=== PATIENT | male | born 1995 | race Caucasian/White ===

== ENCOUNTER 2016-04-23 06:17 | Emergency (ER) | payer SELFPAY ==
[~2016-04-23] VITALS: Ht 188 cm; Wt 84.0 kg
[2016-04-23 06:19] VITALS: BP 124/74; PULSE 105; RESP 16; TEMP 99.3; O2SAT 98
[2016-04-23] MEDS ORDERED: IBUPROFEN 800 MG TAB PO ONE (07:15)
[2016-04-23] MEDS ORDERED: ACETAMINOPHEN 500 MG CPLT PO ONE (07:15)
--- NOTE | 2016-04-23 07:45 | PD ---
HPI Chief Complaint: Cold / Flu Symptoms Time Seen by Provider: 07:44 Travel History International Travel<30 days: No Contact w/Intl Traveler<30days: No Traveled to known affect area: No History of Present Illness HPI 20-year-old male presents to emergency department with sore throat, fever, and body aches since last evening. Patient states it is difficult to swallow. Denies any cough or chest congestion. Denies nausea, vomiting, or diarrhea. No other symptoms to report. PFSH Past Medical History Medical History: Denies Significant Hx Diminished Hearing: No Immunizations Current: Yes Past Surgical History Eye Surgery: Yes (LASIK BILAT) Social History Alcohol Use: Yes (OCC) Tobacco Use: No Substance Use: No Allergies-Medications (Allergen,Severity, Reaction): Coded Allergies: No Known Allergies (Unverified , 04/23/16) Reported Meds & Prescriptions Reported Meds & Active Scripts Active Ibuprofen 800 Mg Tab 800 Mg PO Q6HR PRN Magic Mouthwash Adult Liq (Multi-Ingredient Mouthwash/Gargle) 120 Ml Susp 5 Ml SWISH-SPIT Q3HR PRN Each 5mL contains: Nystatin 200,000units, Diphenhydramine 4.25mg, Viscous Lidocaine 10mg, Torres syrup 0.8 mL Amoxicillin 500 Mg Cap 500 Mg PO BID 10 Days Review of Systems Except as stated in HPI: all other systems reviewed are Neg Physical Exam Narrative GENERAL: Well-nourished male patient in no acute distress SKIN: Warm and dry. HEAD: Atraumatic. Normocephalic. EYES: Pupils equal and round. No scleral icterus. No injection or drainage. ENT: No nasal bleeding or discharge. 2+ tonsillar edema with large exudate. Mucous membranes pink and moist. NECK: Trachea midline. No JVD. CARDIOVASCULAR: Regular rate and rhythm. No murmur appreciated. RESPIRATORY: No accessory muscle use. Clear to auscultation. Breath sounds equal bilaterally. GASTROINTESTINAL: Abdomen soft, non-tender, nondistended. Hepatic and splenic margins not palpable. MUSCULOSKELETAL: No obvious deformities. No clubbing. No cyanosis. No edema. NEUROLOGICAL: Awake and alert. No obvious cranial nerve deficits. Motor grossly within normal limits. Normal speech. PSYCHIATRIC: Appropriate mood and affect; insight and judgment normal. Data Data Last Documented VS Vital Signs Date Time Temp Pulse Resp B/P Pulse Ox O2 Delivery O2 Flow Rate FiO2 04/23/16 06:19 99.3 105 16 124/74 98 Orders Influenzae A/B Antigen (04/23/16 06:29) Group A Rapid Strep Screen (04/23/16 07:04) Monoscreen (04/23/16 07:04) Ibuprofen (Motrin) (04/23/16 07:15) Acetaminophen (Tylenol) (04/23/16 07:15) Strep Culture (Group A) (04/23/16 07:20) Labs Laboratory Tests Test 04/23/16 07:20 Monoscreen NEG MDM Medical Decision Making Medical Screen Exam Complete: Yes Emergency Medical Condition: Yes Medical Record Reviewed: Yes Differential Diagnosis Strep pharyngitis versus mono versus influenza versus viral syndrome Narrative Course 20-year-old male presents to emergency department for evaluation of flulike symptoms. Workup is initiated. Signed outpatient to Emory Alonso ARNP. Disposition will pend her judgment. Diagnosis Primary Impression: Exudative pharyngitis Additional Impression: Fever Qualified Code: R50.9 - Fever, unspecified fever cause Referrals: Primary Care Physician Patient Instructions: Fever in Adults (ED), General Instructions Departure Forms: Tests/Procedures, Work Release Enter return to work date: Apr 26, 2016 Scripts Ibuprofen 800 Mg [id number] Mg PO Q6HR PRN (PAIN) #30 TAB Ref 0 Prov:Celeste Cat 04/23/16 Yclnaiue-Ayxgxptexnyaeaz-Uewyhgqhx Liq (Magic Mouthwash Adult Liq)120 Ml Susp5 Ml SWISH-SPIT Q3HR PRN (PAIN SCALE 1 TO 10) #120 ML Ref 0 Each 5mL contains: Nystatin 200,000units, Diphenhydramine 4.25mg, Viscous Lidocaine 10mg, Torres syrup 0.8 mL Prov:Celeste Cat 04/23/16 Amoxicillin 500 Mg [id number] Mg PO BID 10 Days Ref 0 Prov:Celeste Cat 04/23/16 Disposition: 01 DISCHARGE HOME Condition: Stable Terra Brower Apr 23, 2016 07:45
[2016-04-23] MEDS ORDERED: MAGICADU2 SWISH-SPIT (08:20)
[2016-04-23] MEDS ORDERED: AMOX500C PO (08:20)
[2016-04-23] MEDS ORDERED: IBUP800T23 PO (08:20)
--- NOTE | 2016-04-23 08:21 | PD ---
Physical Exam Time Seen by Provider: 08:19 Narrative I dispositioned this patient. See initail assessment note from previous provider, PRINCE Luong. Data Data Last Documented VS Orders Influenzae A/B Antigen (04/23/16 06:29) Group A Rapid Strep Screen (04/23/16 07:04) Monoscreen (04/23/16 07:04) Ibuprofen (Motrin) (04/23/16 07:15) Acetaminophen (Tylenol) (04/23/16 07:15) Strep Culture (Group A) (04/23/16 07:20) Labs MDM Supervised Visit with HAYDEE: No Narrative Course I dispositioned this patient. See initail assessment note from previous provider, PRINCE Luong. 0820: Rapid strep, influenza, monoscreen negative. Will treat with antibiotics for exudative pharyngitis and fever. Amoxicillin, Magic mouthwash, ibuprofen prescribed for home. Patient is medically cleared and stable for discharge. Discussed reasons to return to the emergency department. Instructed patient to follow up with primary care provider. Patient agrees with treatment plan. The patients vital signs are stable and the patient is stable for outpatient follow-up and treatment. Patient discharged home, stable and in no acute distress. Diagnosis Primary Impression: Exudative pharyngitis Additional Impression: Fever Qualified Code: R50.9 - Fever, unspecified fever cause Referrals: Primary Care Physician Patient Instructions: Fever in Adults (ED), General Instructions, Pharyngitis ( ED) Departure Forms: School Release, Return to School Date: Apr 25, 2016 Tests/Procedures Additional Instruction: Take Antibiotics as prescribed and complete full course of antibiotics Get plenty of sleep/rest Rest your voice Drink plenty of fluids to prevent dehydration Use warm saltwater gargles to soothe throat pain Use an air humidifier/turn off ceiling fans Use throat lozenges as needed for sore throat Use ibuprofen or acetaminophen as needed to relieve pain and fever Follow-up with your primary care provider within 2-4 days Return immediately to the emergency department with worsening of symptoms Med/Other Pt SpecificInfo: Prescription(s) given Scripts Ibuprofen 800 Mg [id number] Mg PO Q6HR PRN (PAIN) #30 TAB Ref 0 Prov:Celeste CatP 2/7/17 Zzjdeakc-Qscfjsotpcjlpfe-Sggpwlxin Liq (Magic Mouthwash Adult Liq)120 Ml Susp5 Ml SWISH-SPIT Q3HR PRN (PAIN SCALE 1 TO 10) #120 ML Ref 0 Each 5mL contains: Nystatin 200,000units, Diphenhydramine 4.25mg, Viscous Lidocaine 10mg, Torres syrup 0.8 mL Prov:AlexCeleste sánchez 04/23/16 Amoxicillin 500 Mg [id number] Mg PO BID 10 Days Ref 0 Prov:AlexCeleste sánchez 04/23/16 Disposition: 01 DISCHARGE HOME Condition: Stable Celeste Cat Apr 23, 2016 08:21 Ml SWISH-SPIT Q3HR PRN (PAIN SCALE 1 TO 10) #120 ML Ref 0 Each 5mL contains: Nystatin 200,000units, Diphenhydramine 4.25mg, Viscous Lidocaine 10mg, Torres syrup 0.8 mL Prov:AlexCeleste sánchez 04/23/16 Amoxicillin 500 Mg [id number] Mg PO BID 10 Days Ref 0 Prov:AlexCeleste sánchez 04/23/16 Disposition: 01 DISCHARGE HOME Condition: Stable Celeste Cat Apr 23, 2016 08:21
== END 2016-04-23 08:42 | disposition home or self-care (01) ==
LOC: NEPB 06:17
DX: J02.9 Acute pharyngitis, unspecified (principal); R50.9 Fever, unspecified
CPT/HCPCS: 86308; 87081; 87804; 87880; 99283